=== PATIENT | female | born 1935 | race Caucasian/White ===

== ENCOUNTER → 2023-07-17 12:59 | Outpatient (REF) | payer MEDICARE, OTHER, SELFPAY ==
[2023-07-17 14:01] LABS: Free T4 1.65 ng/dl (0.78-2.19)
[2023-07-17 14:13] LABS: TSH 2.08 uIU/ml (0.47-4.68)
== END ==
LOC: OLABPV 12:59
PROVIDERS: ATTENDING PHYSICIAN Family Medicine
DX: E03.9 Hypothyroidism, unspecified (principal); R79.89 Other specified abnormal findings of blood chemistry
CPT/HCPCS: 36415; 84439; 84443

== ENCOUNTER → 2023-11-15 18:06 | Outpatient (REF) | payer MEDICARE, OTHER, SELFPAY | LOC: OLABP 18:06 | PROVIDERS: ATTENDING PHYSICIAN Specialist | DX: C65.2 Malignant neoplasm of left renal pelvis (principal) | CPT/HCPCS: 88112 ==

== ENCOUNTER → 2024-01-07 11:44 | Outpatient (REF) | payer MEDICARE, OTHER, SELFPAY ==
[2024-01-07 13:05] LABS: % Eosinophils 6.8 % (0-6); % Immature Granulocytes 0.2 % (0-0.5); % Lymphocytes 33.4 % (20.5-51.1); % Monocytes 9.6 % (1.7-9.3); Absolute Basophils 0.1 10^3/uL (0-0.2); Absolute Eosinophils 0.3 10^3/uL (0-0.7); Absolute Lymphocytes 1.6 10^3/uL (1.2-3.4); Absolute Monocytes 0.5 10^3/uL (0.1-0.6); Absolute Neutrophils 2.4 10^3/uL (1.4-6.5); Hemoglobin 13.2 g/dL (12.0-16.0); Mean Corp Hgb Conc. 33.8 g/dL (33.0-37.0); Mean Corpuscular Hgb 31.9 pg (27.0-31.0); Mean Corpuscular Volume 94.2 fL (81.0-99.0); Nucleated Red Blood Cells % 0 %; Platelet Count 154 10^3/uL (130-400); Red Blood Cell Count 4.14 10^6/uL (4.20-5.40); Red Cell Dist. Width 13.3 % (11.5-14.5); White Blood Cell Count 4.9 10^3/uL (4.8-10.8)
[2024-01-07 13:35] LABS: ALT (SGPT) 14 U/L (0-35); AST (SGOT) 23 U/L (14-36); Albumin 3.7 g/dl (3.5-5.0); Alkaline Phosphatase 72 U/L (38-126); Blood Urea Nitrogen 20 mg/dl (7-17); Calcium 9.5 mg/dl (8.4-10.2); Carbon Dioxide 25 mmol/L (22-30); Chloride 107 mmol/L (98-107); Glucose 91 mg/dl (70-99); HDL Cholesterol 31 mg/dl; LDL Cholesterol, Calculated 98 mg/dl; Potassium 4.2 mmol/L (3.5-5.1); Sodium 138 mmol/L (135-145); Total Bilirubin 0.9 mg/dl (0.2-1.3); Total Cholesterol 148 mg/dl (50-199); Total Protein 6.3 g/dl (6.3-8.2); Triglyceride 95 mg/dl (10-149); Very Low Density Lipoprotein 19 mg/dl (0-30); eGFR 48.03
[2024-01-07 13:53] LABS: Glycohemoglobin (HgbA1c) 5.4 % (4.0-5.6)
== END ==
LOC: OLABPV 11:44
PROVIDERS: ATTENDING PHYSICIAN Family Medicine
DX: R73.02 Impaired glucose tolerance (oral) (principal); N18.30 Chronic kidney disease, stage 3 unspecified; E03.9 Hypothyroidism, unspecified; D53.9 Nutritional anemia, unspecified
CPT/HCPCS: 36415; 80053; 80061; 83036; 84443; 85025